=== PATIENT | male | born 1960 | race Caucasian/White ===

== ENCOUNTER → 2023-09-11 11:02 | Outpatient (REF) | payer OTHER, SELFPAY | LOC: HWRAD 11:02 | PROVIDERS: ATTENDING PHYSICIAN Chiropractor; FAMILY PHYSICIAN Family Medicine | DX: M54.16 Radiculopathy, lumbar region (principal); M54.07 Panniculitis affecting regions of neck and back, lumbosacral region | CPT/HCPCS: 72110 ==

== ENCOUNTER → 2023-09-29 07:51 | Outpatient (REF) | payer OTHER, SELFPAY | LOC: HWRAD 07:51 | PROVIDERS: ATTENDING PHYSICIAN Family Medicine | DX: R76.8 Other specified abnormal immunological findings in serum (principal) | CPT/HCPCS: 76536 ==